=== PATIENT | female | born 1955 | race Caucasian/White ===

== ENCOUNTER 2020-03-28 13:13 | Inpatient (IN) | payer MEDICARE, OTHER ==
[~2020-03-28] VITALS: Ht 170.2 cm; Wt 107.0 kg
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
[2020-03-28 13:46] LABS: BASOPHILS % (AUTO) 0.2 % (0.0-2.0); EOSINOPHILS % (AUTO) 0.5 % (0.0-6.0); HEMATOCRIT 47 % (33-45); HEMOGLOBIN 15.4 g/dL (11.5-14.8); LYMPHOCYTES % (AUTO) 11.8 % (20.0-44.0); MEAN CORPUSCULAR HGB CONC 33 g/dl (31.0-36.0); MEAN CORPUSCULAR VOLUME 93 fL (82-100); MONOCYTES % (AUTO) 12.1 % (2.0-12.0); NEUTROPHILS # (AUTO) 6.3 /CMM (1.8-8.9); NEUTROPHILS % (AUTO) 75.4 % (43.0-81.0); PLATELET COUNT (AUTO) 233 /CMM (150-450); WHITE BLOOD COUNT (AUTO) 8.4 K/uL (4.3-11.0)
--- NOTE | 2020-03-28 13:47 | NUR ---
BROTHER CRISTOBAL ESCUDERO FROM [place] . THERAPIST [phone] OR [phone]
--- NOTE | 2020-03-28 14:00 | NUR ---
PATIENT TAKEN TO CT.
[2020-03-28] MEDS ORDERED: METF-440 PO (14:31)
[2020-03-28] MEDS ORDERED: OLAN20TA3 PO (14:31)
[2020-03-28] MEDS ORDERED: TRAZ-252 PO (14:31)
[2020-03-28] MEDS ORDERED: FLUO40CA49 PO (14:31)
[2020-03-28 14:41] LABS: CALCIUM, SERUM 8.8 mg/dL (8.5-10.1); CARBON DIOXIDE 22 mmol/L (21-32); CHLORIDE 99 mmol/L (98-107); CREATININE 0.8 mg/dL (0.6-1.3); GLUCOSE 112 mg/dL (74-106); POTASSIUM 3.3 mmol/L (3.5-5.1); SODIUM SERUM 137 mmol/L (136-145); UREA NITROGEN, BLOOD 9 mg/dL (7-18)
[2020-03-28 14:46] LABS: ALANINE AMINOTRANSFERASE 895 U/L (12-78); ALBUMIN 2.9 g/dL (3.4-5.0); ALKALINE PHOSPHATASE 247 U/L (46-116); ASPARTATE AMINOTRANSFERASE 79 U/L (15-37); BILIRUBIN,DIRECT 1.8 mg/dL (0.0-0.2); BILIRUBIN,TOTAL 2.7 mg/dL (0.2-1.0); TOTAL PROTEIN, SERUM 7.5 g/dL (6.4-8.2)
--- NOTE | 2020-03-28 14:46 | NUR ---
PATIENT ABLE TO AMBULATE TO RESTROOM. WAS ABLE TO GIVE A URINE SAMPLE.
[2020-03-28 14:47] LABS: SALICYLATE < 2.8 mg/dL (2.8-20.0)
--- NOTE | 2020-03-28 14:53 | NUR ---
COVID SWAB SENT.
--- NOTE | 2020-03-28 15:19 | NUR ---
received a covid 19 result from the lab "negative".
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
--- NOTE | 2020-03-28 17:17 | NUR ---
ATTEMPTED TO GIVE REPORT TO JAX PATTERSON FOR THREE TIMES, RN UNABLE TO TAKE REPORT. PATIENT WILL BE TRANSPORTED TO THE FLOOR, WILL GIVE BEDSIDE REPORT.
[2020-03-28] MEDS ORDERED: D5W IV ONE ×7 (17:30→23:00)
[2020-03-28] MEDS ORDERED: ACETYLCYSTEINE IV ONE ×7 (17:30→23:00)
--- NOTE | 2020-03-28 17:50 | NUR ---
REPORT GIVEN TO HOMER PATTERSON. WAITING FOR THE FIRST MUCOMYST.
[2020-03-28] MEDS ORDERED: IV NS 0.9% 1,000 ML IV PRN (18:22)
[2020-03-28] MEDS ORDERED: Z GUARD REMEDY 2 OZ OINT TP PRN (18:30)
[2020-03-28] MEDS ORDERED: MAG HYDROX/AL HYDROX/SIMETH 30 ML UDC PO PRN (18:30)
[2020-03-28] MEDS ORDERED: ONDANSETRON HCL/PF 4 MG/2 ML VIAL IVP PRN (18:30)
[2020-03-28] MEDS ORDERED: MAGNESIUM HYDROXIDE 30 ML UDC PO PRN (18:30)
--- NOTE | 2020-03-28 18:31 | NUR ---
PATIENT TRANSFERRED TO ROOM 310-1 VIA ACLS PROTOCOL. NO DISTRESS NOTED. NEEDS ATTENDED. ENDORSED TO JAX PATTERSON.
[2020-03-28] MEDS ORDERED: POTASSIUM CHLORIDE 20 MEQ TAB.PRT.SR PO ONE (19:00)
--- NOTE | 2020-03-28 19:00 | NUR ---
CALLED POISON CONTROL AND SPOKE WITH DOM, GAVE A COUPLE OF RECOMMENDATIONS. MAY CHECK LEFT'S EVERY 8 HOURS IF LFT'S ARE SIGNIFICANTLY LOWER THEN MEDICATION CAN BE DISCONTINUED. OR LFTS CAN BE CHECK 1 HOUR BEFORE THE NEXT DOSE OF MEDICATION. PHARMACY MADE AWARE. Addendum: 03/28/20 at 1908 by ROALCANCES CORRECTION: JOSE. AND AGREED TO GIVE MUCOMYST TO PATIENT.
--- NOTE | 2020-03-28 19:21 | NUR ---
TELE/RN NOTES RECEIVED REPORT FROM [facility] ER NURSE. PATIENT IS ALERT AND ORIENTED X3. PATIENT DENIES PAIN. PATIENT IN NO APPARENT RESPIRATORY DISTRESS NOTED. WILL ENDORSED TO INKER FOR TRISTON.
--- NOTE | 2020-03-28 19:45 | NUR ---
MARINE BIOLOGIST NOTE: PATIENT RESTING IN BED, NO ACUTE DISTRESS NOTED. BREATHING EVEN AND UNLABORED, NO SOB NOTED. IV TO RAC IN PLACE. PER DAY SHIFT AND PHARMACY, TO GIVE 2ND DOSE OF MUCOMYST IV AND TO CHECK LIVER FUNCTION LEVELS 1 HOURS PRIOR TO 3RD DOSE. 2ND DOSE OF MUCOMYST HUNG PER MD ORDER. SITTER AT BEDSIDE. BED LOCKED AND IN LOWEST POSITION, CALL LIGHT IN REACH. WILL CONTINUE TO MONITOR.
[2020-03-28 20:12] VITALS: BP 168/100
--- NOTE | 2020-03-28 21:00 | NUR ---
REPORT RECIEVED FROM HARSH PATTERSON. ASSUMED CARE. ADMISSION STILL NEEDS TO BE PERFORMED PATIENT ARRIVED ON UNIT AT 1830 PER REPORT.
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
[2020-03-28 22:51] LABS: ALBUMIN 2.5 g/dL (3.4-5.0); BILIRUBIN,DIRECT 1.4 mg/dL (0.0-0.2); BILIRUBIN,TOTAL 2.4 mg/dL (0.2-1.0); TOTAL PROTEIN, SERUM 6.7 g/dL (6.4-8.2)
[2020-03-29 00:03] VITALS: BP 157/73
--- NOTE | 2020-03-29 03:03 | NUR ---
[facility] CALLED AND INFORMED OF ORDERED PSYCH CONSULT. SPOKE WITH CARE CONSULTANT PARISH PATTERSON.
[2020-03-29 05:23] VITALS: BP 168/81
--- NOTE | 2020-03-29 05:30 | NUR ---
PT HYPERTENSIVE BP 168/81 BP CONSISTANTLY HIGH THROUGH OUT SHIFT CONTACTED ASHANTI NORRIS ASKED IF ANYTHING SHOULD BE GIVEN. NO NEW ORDERS RECIEVED. CONT TO MONITOR BP
--- NOTE | 2020-03-29 05:59 | NUR ---
pt refusing to wear scd sleeves.
--- NOTE | 2020-03-29 06:02 | NUR ---
PATIENT TRANSFERRED TO [facility] BED 1. OBSERVATION SITTER CONT. PT AMBULATED TO BR. IN NO APPARENT DISTRESS.
[2020-03-29 06:46] LABS: BASOPHILS % (AUTO) 0.2 % (0.0-2.0); EOSINOPHILS % (AUTO) 0.7 % (0.0-6.0); HEMATOCRIT 44 % (33-45); HEMOGLOBIN 14.3 g/dL (11.5-14.8); LYMPHOCYTES # (AUTO) 1.4 /CMM (0.8-4.8); MEAN CORPUSCULAR HGB CONC 33 g/dl (31.0-36.0); MEAN CORPUSCULAR VOLUME 93 fL (82-100); MONOCYTES # (AUTO) 1.6 /CMM (0.1-1.30); MONOCYTES % (AUTO) 16.5 % (2.0-12.0); NEUTROPHILS # (AUTO) 6.7 /CMM (1.8-8.9); NEUTROPHILS % (AUTO) 68.6 % (43.0-81.0); PLATELET COUNT (AUTO) 228 /CMM (150-450); RED BLOOD CELL COUNT(AUTO) 4.66 MIL/uL (4.0-5.2); WHITE BLOOD COUNT (AUTO) 9.7 K/uL (4.3-11.0)
--- NOTE | 2020-03-29 07:19 | NUR ---
COMPUTER LABORATORY TECHNICIAN CLOSING NOTE: PATIENT RESTING IN BED, NO ACUTE DISTRESS NOTED. BREATHING EVEN AND UNLABORED, NO SOB NOTED. IV TO RAC IN PLACE. MUCOMYST IV INFUSING ORDERED SITTER AT BEDSIDE. BED LOCKED AND IN LOWEST POSITION, CALL LIGHT IN REACH. WILL ENDORSE TO ONCOMING SHIFT
--- NOTE | 2020-03-29 07:20 | NUR ---
ms rn received on bed, awake,alert,oriented x4 w/ sitter at bed side,no distress noted, denies pain at this time,iv of mucomist on, will monitor patient's condition.
[2020-03-29 07:23] LABS: ALBUMIN 2.4 g/dL (3.4-5.0); BILIRUBIN,DIRECT 1.6 mg/dL (0.0-0.2); BILIRUBIN,TOTAL 2.5 mg/dL (0.2-1.0); CALCIUM, SERUM 8.5 mg/dL (8.5-10.1); CREATININE 0.8 mg/dL (0.6-1.3); MAGNESIUM 2.2 mg/dL (1.8-2.4); PHOSPHORUS 2.5 mg/dL (2.5-4.9); POTASSIUM 3.9 mmol/L (3.5-5.1); TOTAL PROTEIN, SERUM 6.7 g/dL (6.4-8.2)
[2020-03-29 07:30] LABS: THYROID STIMULATING HORMONE 2.173 uIU/mL (0.358-3.74)
--- NOTE | 2020-03-29 07:45 | NUR ---
ms rn was seen by dr. velasquez claros/ orders made and carried out.
[2020-03-29 08:00] VITALS: BP 148/76
--- NOTE | 2020-03-29 09:00 | NUR ---
ms dickerson went down for ct angoi. Addendum: 03/29/20 at 1443 by JADA ROBLEDO RN patient went down for ct chest,not ct angio.
--- NOTE | 2020-03-29 10:02 | NUR ---
ms jayla came back from procedure, poison control called w/ orders.
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
--- NOTE | 2020-03-29 10:46 | NUR ---
This SW attempted to contact catrachita's brother Zak unfortunatley this SW was not able to contact. However, this SW left Zak a voicemail containing contact information for this patient.
--- NOTE | 2020-03-29 11:05 | NUR ---
This SW met with the patient at bedside. Patient is alert and oriented x4. This SW attempted to complete assessment for APS reporting. Patient did not report much information. Patient reporting that she is feeling better and would like to go home. Per patient, she lives alone and has one brother Zak (older). Zak lives in [place]. Per patient, she is independent in ADL's and IADL's. Patient reports that brother Zak comes to visit her with his children, patient's mood changed and smiled as she reported this. When this SW asked the patient regarding her past employment history and patient stating "I don't want to talk anymore." SW to attempt to learn more information regarding this patient.
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
[2020-03-29 12:00] VITALS: BP 120/70
--- NOTE | 2020-03-29 13:00 | NUR ---
This SW received a call back from patient's brother Zak . Zak reports that the patient has been diagnosed with paranoid schizophrenia, depression, and beltran. Zak states that the patient has been on medications for 25 years. Patient has received services from [facility] . Zak states that the patient's therapist is Molly Fox and patient's doctor was Monserrat Solis. Per Zak, catrachita's doctor left this site on February 03 and patient has not been assigned a new doctor. Zak states that patient has 4 medications at the pharmacy pending pre-authorization. Per Zak, he believes patient has been off medications for weeks now. Zak could not remember the names of the medications that patient's sister was taking. Zak states that he was here visiting the patient 3 weeks ago and sent in renewal forms for patient's social security disability. Zak also states that he flew to [place] and is currently here if his presence is needed. This SW to call [facility] to get a medical release form from their facility (if needed) for medical records. This SW to also obtain [facility] Authorization form for disclosure of health information. SW remains available for all needs regarding this patient.
[2020-03-29 13:21] LABS: ALBUMIN 2.4 g/dL (3.4-5.0); BILIRUBIN,DIRECT 1.4 mg/dL (0.0-0.2); BILIRUBIN,TOTAL 2.1 mg/dL (0.2-1.0); TOTAL PROTEIN, SERUM 6.6 g/dL (6.4-8.2)
--- NOTE | 2020-03-29 13:37 | NUR ---
This SW attempted to contact [facility] for specific documentation for release of records. This SW was redirect to several different branches and not given correct information regarding this patient. This SW called Mae Fox to seek specific documentation for release of records.
--- NOTE | 2020-03-29 14:20 | NUR ---
ms rn labs-lfts and inr drawn,waiting for result.
--- NOTE | 2020-03-29 14:25 | NUR ---
Patient is refusing to sign release of records waiver for [facility] and Mae Fox . This SW had brother Zak speak with the patient and patient kept stating "I'm scared." SW explained that having patient's records will help [facility] Psychiatrist monitor medications while admitted. Patient stating "I'll think about it." This SW to check in with patient again. Addendum: 03/29/20 at 1628 by DALILA LAZO This SW followed up before end of day for the patient to sign release of medical records. Explained the purpose and patient "I rather not."
--- NOTE | 2020-03-29 14:51 | NUR ---
This SW left a copy of medical release documentation in the patient's chart for nursing to attempt to have the patient sign. SW will attempt once more before end of day. ATTN: Medical Records fax for Mae Fox . Authorization for use or disclosure of health information document was printed directly from [employer] under [employer]. Mae Fox does not require additional documentation for her office beyond SO request form. Addendum: 03/29/20 at 1628 by DALILA LAZO This SW followed up before end of day for the patient to sign release of medical records. Explained the purpose and patient "I rather not."
[2020-03-29 15:01] LABS: ALBUMIN 2.5 g/dL (3.4-5.0); BILIRUBIN,DIRECT 1.3 mg/dL (0.0-0.2); TOTAL PROTEIN, SERUM 6.7 g/dL (6.4-8.2)
[2020-03-29 16:00] VITALS: BP 124/68
--- NOTE | 2020-03-29 16:00 | NUR ---
ms rn lft and inr trending up, called poison control dept, talked w/Melissa,wants to continue above iv then repaet lft and inr one hour before bag is finished.
[2020-03-29] MEDS ORDERED: ACETYLCYSTEINE IV ONE (16:30)
[2020-03-29] MEDS ORDERED: D5W IV ONE (16:30)
--- NOTE | 2020-03-29 18:22 | NUR ---
ms rn on bed, no distress noted,patient still refusing to take pictures of her body bruises, all needs attended.
--- NOTE | 2020-03-29 19:40 | NUR ---
MSRN RESTING QUIETLY, NO NEEDS MADE. FLAT AFFECT. LIMITED VERBAL. COOPERATIVE AT THIS TIME. PRESENT IVF WITH MUCOMYST ORDERED
[2020-03-29 20:00] VITALS: BP 127/63
[2020-03-29 21:53] LABS: ALBUMIN 2.3 g/dL (3.4-5.0); BILIRUBIN,DIRECT 1.1 mg/dL (0.0-0.2); BILIRUBIN,TOTAL 1.7 mg/dL (0.2-1.0); TOTAL PROTEIN, SERUM 6.2 g/dL (6.4-8.2)
--- NOTE | 2020-03-29 22:30 | NUR ---
MSRN BRP WITH STANDBY ASSIST. VOIDED FREELY. REFUSED TO ANSWER WHEN ASKED, AT THIS TIME. NEEDS CLOSER OBSERVATION.
[2020-03-30] VITALS (7 sets, daily range): BP systolic 124–150; BP diastolic 49–70
--- NOTE | 2020-03-30 01:48 | NUR ---
MSRN SLEEPING APPEARS COMFORTABLE, REMAINS SR ON THE MONITOR. CONTINUED MONITORING.
[2020-03-30 06:20] LABS: BASOPHILS % (AUTO) 0.2 % (0.0-2.0); EOSINOPHILS % (AUTO) 1.7 % (0.0-6.0); HEMATOCRIT 40 % (33-45); HEMOGLOBIN 13.3 g/dL (11.5-14.8); LYMPHOCYTES # (AUTO) 1.5 /CMM (0.8-4.8); MEAN CORPUSCULAR HGB CONC 33 g/dl (31.0-36.0); MEAN CORPUSCULAR VOLUME 93 fL (82-100); MONOCYTES # (AUTO) 1.3 /CMM (0.1-1.30); MONOCYTES % (AUTO) 17.3 % (2.0-12.0); NEUTROPHILS # (AUTO) 4.6 /CMM (1.8-8.9); NEUTROPHILS % (AUTO) 60.8 % (43.0-81.0); PLATELET COUNT (AUTO) 203 /CMM (150-450); RED BLOOD CELL COUNT(AUTO) 4.33 MIL/uL (4.0-5.2); WHITE BLOOD COUNT (AUTO) 7.6 K/uL (4.3-11.0)
--- NOTE | 2020-03-30 06:21 | NUR ---
MSRN BACK TO BED FROM RESTROOM. NO COMPLAINTS MADE. REMAINS COOPERATIVE.
[2020-03-30 06:46] LABS: ALBUMIN 2.3 g/dL (3.4-5.0); BILIRUBIN,DIRECT 1.3 mg/dL (0.0-0.2); CALCIUM, SERUM 8.4 mg/dL (8.5-10.1); CREATININE 0.6 mg/dL (0.6-1.3); TOTAL PROTEIN, SERUM 6.2 g/dL (6.4-8.2)
[2020-03-30 07:19] LABS: POTASSIUM 2.8 mmol/L (3.5-5.1)
--- NOTE | 2020-03-30 07:30 | NUR ---
MS/RN Opening note Patient received from caramel cutter hand. A/O X3, vital signs stable, denies any pain or discomfort. Sitter remains within arms reach of patient at all times to ensure safety. Denies any thoughts of wanting to harm oneself. Will continue to monitor and ensure safety.
[2020-03-30 08:58] LABS: BAND % (MANUAL) 1 % (0.0-5.0); EOSINOPHILS % (MANUAL) 2 % (0-4); LYMPHOCYTES % (MANUAL) 26 % (16-48); MONOCYTES % (MANUAL) 2 % (0-11.0); NEUTROPHILS % (MANUAL) 69 (42-76)
--- NOTE | 2020-03-30 09:42 | NUR ---
MS/RN S/B Nico Meyer SCREW MACHINE SET UP OPERATOR TOOL Seen by SCREW MACHINE SET UP OPERATOR TOOL - labs to be ordered once current IV completed to evaluate liver function. Await further orders from psychiatrist.
[2020-03-30] MEDS ORDERED: LACTULOSE 10 G/15 ML UDC (PYXIS) PO PRN (10:00)
--- NOTE | 2020-03-30 10:00 | NUR ---
MS/RN S/B Nico Meyer LEAN COACH Seen by LEAN COACH - continue with fluids, replaced potassium, physical therapy evaluation. Await further recommendations from poison contro.
[2020-03-30] MEDS: POTASSIUM CHLORIDE 20 MEQ TAB.PRT.SR PO SCH ×5 (10:47→14:00)
--- NOTE | 2020-03-30 10:54 | NUR ---
Patient Brother Zak contacted this SW to provide list of medications he found in sister's home. Fluoxetine HCL 40 mg 2 times by mouth everyday Olanzapine 20mg generic for Zyprexia 2 by mouth at bedtime Trazodne 50 mg generic for desyrel 1/2 to 1 tablet at bedtime when needed Metformin HCL 500mg generic for glucphage take twice a day by mouth with morning and evening meals SW to provide this list of medications to patient nurse and coating mixer tender Nino
--- NOTE | 2020-03-30 12:00 | NUR ---
MS/RN S/B Dr Astudillo Seen by Dr Astudillo - restart psychiatric medications but with lower dosages. -zyprexia 10mg BID -prozac 20mg QD -trazadone at night as needed. Continue with one to one sitter to ensure safety. Will be reevaluated daily, and once medically cleared, for possible admission to [facility].
[2020-03-30 12:29] LABS: ALBUMIN 2.4 g/dL (3.4-5.0); BILIRUBIN,DIRECT 1.1 mg/dL (0.0-0.2); BILIRUBIN,TOTAL 1.6 mg/dL (0.2-1.0); TOTAL PROTEIN, SERUM 6.2 g/dL (6.4-8.2)
[2020-03-30] MEDS ORDERED: TRAZODONE 50 MG TABLET PO PRN (12:30)
[2020-03-30] MEDS: OLANZAPINE 10 MG TABLET PO SCH ×2 (12:38→21:45)
--- NOTE | 2020-03-30 13:00 | NUR ---
MS/RN Labs AST - 58 / 61 ALT - 502 / 473 INR - 1.28
--- NOTE | 2020-03-30 13:31 | NUR ---
MS/RN Poison control Call received from Kwame at poison control, as labs are normalizing, will sign off on case.
--- NOTE | 2020-03-30 15:48 | NUR ---
This SW met with the patient at bedside. Patient is alert and orientedx3. Patient stated to this SW "I was asking to see you, I'm glad you came." Patient asked this SW if the patient is ready to go home. This SW informed the patient that this SW cannot dictate when she goes home, the doctor will inform the patient when she is ready for discharge. Patients voice changed, a little softer, as if the patient was sad. Patient stated that she was ready to speak with Mae Fox her therapist however when this SW was dialing patient changed her mind. Patient stated that she wanted to sign [facility] Waiver for release of medical records but when prompted to do so patient did not want to. Patients thought process was repetitive asking the same questions of "When can I go home?, Can I see Zak(brother)? Would I have been able to see Zak yesterday? The doctor that I saw today, could I have seen him yesterday? I don't want to live at the hospital. I need to go home and take care of my dog." Patient did ask this SW if patient would see this SW and doctors again tomorrow. This SW stated that her interdisciplinary team will round when appropriate. Patient asked to rest. SW to follow-up with the patient tomorrow to follow-up on request to speak to Mae Fox patient's therapist and [facility] Waiver. SW to remain available for all needs regarding the patient.
--- NOTE | 2020-03-30 16:15 | NUR ---
Patient's brother Zak called this SW to check-in on patient. SW informed the brother that this patient's affect changed from yesterday. Patient is more open and receptive to meeting with individuals but does not have a clear thought process. Zak asked this SW if the psychiatrist had met with the patient. SW informed brother that psychiatrist did meet with the patient. Brothservando Crespo happy about that because "care is being taken care of". Zak asked if patient's phone can be charged, this SW informed Zak that he can make the request with nursing station. Brothservando Crespo wants patient to have it accessible in case patient wants to speak with him. Zak to follow-up on this request with nursing.
--- NOTE | 2020-03-30 18:28 | NUR ---
MS/RN End note Patient has remained calm amd cooperative throughout the shift. Denies any thoughts of self harm or wanting to hurt others. Compliant with medications and care. Will endore to warehouse worker 2nd shift.
--- NOTE | 2020-03-30 19:25 | NUR ---
MSRN FULLY AWAKE, ALL NEEDS MADE.MORE CONVERSANT ALTHOUGH LIMITED. BEHAVIOR ACCEPTABLE. TO START PATIENT ON ZYPREXIA TONIGHT. SITTER AT BEDSIDE. NEEDS CONSTANT OBSERVATION
--- NOTE | 2020-03-30 22:05 | NUR ---
MSRN DUE MEDS ADMINISTERED
[2020-03-31] VITALS: BP 128/55
--- NOTE | 2020-03-31 03:40 | NUR ---
MSRN SLEEPING APPEARS COMFORTABLE. CLOSELY WATCHED. CONTINUED MONITORING
[2020-03-31 04:49] VITALS: BP 146/93
--- NOTE | 2020-03-31 06:30 | NUR ---
MSRN REFUSED BLOOD DRAW THIS TIME. STATED WANTED TO SPEAK TO MD. WILL ENDORSE TO INCOMING RN.
--- NOTE | 2020-03-31 07:30 | NUR ---
RN MS NOTES PT IN BED, AWAKE, ALERT AND ORIENTED, NO COMPLAINT OF PAIN OR ANY DISCOMFORT, RESPIRATIONS NORMAL, NO BEHAVIOR PROBLEM NOTED AT THIS TIME, NEEDS ATTENDED, KEPT WARM AND COMFORTABLE IN BED.
[2020-03-31 07:56] LABS: BASOPHILS # (AUTO) 0.1 /CMM (0.0-0.2); BASOPHILS % (AUTO) 0.7 % (0.0-2.0); EOSINOPHILS % (AUTO) 3.5 % (0.0-6.0); HEMATOCRIT 41 % (33-45); HEMOGLOBIN 13.4 g/dL (11.5-14.8); LYMPHOCYTES # (AUTO) 1.8 /CMM (0.8-4.8); LYMPHOCYTES % (AUTO) 24.5 % (20.0-44.0); MEAN CORPUSCULAR HGB CONC 33 g/dl (31.0-36.0); MEAN CORPUSCULAR VOLUME 94 fL (82-100); MONOCYTES # (AUTO) 1.1 /CMM (0.1-1.30); MONOCYTES % (AUTO) 14.8 % (2.0-12.0); NEUTROPHILS # (AUTO) 4.3 /CMM (1.8-8.9); NEUTROPHILS % (AUTO) 56.5 % (43.0-81.0); PLATELET COUNT (AUTO) 210 /CMM (150-450); WHITE BLOOD COUNT (AUTO) 7.5 K/uL (4.3-11.0)
--- NOTE | 2020-03-31 08:00 | NUR ---
RN MS NOTES PT REFUSED 8AM VITAL SIGNS CHECK.
[2020-03-31 08:32] LABS: ALBUMIN 2.5 g/dL (3.4-5.0); BILIRUBIN,TOTAL 1.6 mg/dL (0.2-1.0); CALCIUM, SERUM 8.6 mg/dL (8.5-10.1); CREATININE 0.7 mg/dL (0.6-1.3); MAGNESIUM 2.2 mg/dL (1.8-2.4); POTASSIUM 4.1 mmol/L (3.5-5.1); TOTAL PROTEIN, SERUM 6.3 g/dL (6.4-8.2)
[2020-03-31] MEDS ORDERED: FLUOXETINE HCL 20 MG CAPSULE PO SCH (09:00)
[2020-03-31] MEDS: OLANZAPINE 10 MG TABLET PO SCH (09:13)
[2020-03-31] MEDS ORDERED: TRAZ-252 PO (11:11)
[2020-03-31] MEDS ORDERED: FLUO20CA42 PO ×2 (11:11→17:30)
[2020-03-31] MEDS ORDERED: OLAN10TA3 PO ×2 (11:11→17:30)
--- NOTE | 2020-03-31 12:32 | NUR ---
RN MS NOTES PT IN BED, ASLEEP, EASY TO AROUSE, NO BEHAVIOR PROBLEM NOTED, COMPLIANT WITH MEDS, PT VERBALIZED THAT SHE WANTS TO GO HOME, PT SEEN BY DR. AREVALO AND DR. LI, CRISIS TEAM EVAL ORDERED, PT CLEARED FOR D/C TO [facility], PT I NFORMED.
[2020-03-31 14:00] VITALS: BP 132/58
--- NOTE | 2020-03-31 16:17 | NUR ---
RN MS NOTES PT IN BED, AWAKE, ALERT AND VERBALLY RESPONSIVE, NO BEHAVIOR PROBLEM NOTED, COMPLIANT WITH MEDS AND INTERVENTIONS, SEEN BY DR. LI, PT SEEN BY CRISIS TEAM PANEL BEATER AND IS ON HOLD, PT FOR DISCHARGE TO [facility], BELONGINGS ACCOUNTED FOR, PT REFUSED SKIN CHECK AND PHOTOS, MEDICATION INSTRUCTIONS GIVEN TO PT, PT REFUSED TO SIGN HER DISCHARGE PAPERS AND BELONGINGS LIST, DISCHARGE AND MEDICATION INSTRUCTIONS GIVEN TO PT, REPORT GIVEN TO KENYON PATTERSON OF [facility], TRANSPORTED PT VIA WHEELCHAIR TO [facility], RECEIVED BY [facility] STAFF,ASSISTED TO BED AND MADE COMFORTABLE, PT IN STABLE CONDITION.
[2020-03-31] MEDS ORDERED: TRAZ-182 PO (17:30)
[2020-03-31] MEDS ORDERED: ALLA266C2 TP (17:30)
[2020-03-31] MEDS ORDERED: LACT10SO PO (17:30)
[2020-03-31] MEDS ORDERED: MAGN400O6 PO (17:30)
[2020-03-31] MEDS ORDERED: MAG30ORA PO (17:30)
== END 2020-03-31 15:10 | DRG 918 ==
LOC: ER 13:17 → TELE 16:11 → MED 03-31 07:39
PROVIDERS: ADMIT Nurse Practitioner Acute Care; ATTEND Nurse Practitioner Acute Care
DX: T39.1X2A Poisoning by 4-Aminophenol derivatives, intentional self-harm, initial encounter (principal); S06.0X9A Concussion with loss of consciousness of unspecified duration, initial encounter; J98.11 Atelectasis; Y92.009 Unspecified place in unspecified non-institutional (private) residence as the place of occurrence of the external cause; M50.30 Other cervical disc degeneration, unspecified cervical region; E87.6 Hypokalemia; W19.XXXA Unspecified fall, initial encounter; R29.6 Repeated falls; R74.0 Nonspecific elevation of levels of transaminase and lactic acid dehydrogenase [LDH]; E80.6 Other disorders of bilirubin metabolism; Z79.84 Long term (current) use of oral hypoglycemic drugs; Z79.899 Other long term (current) drug therapy; Y92.9 Unspecified place or not applicable; T14.8XXA Other injury of unspecified body region, initial encounter; Z68.37 Body mass index [BMI] 37.0-37.9, adult; F25.1 Schizoaffective disorder, depressive type; E66.9 Obesity, unspecified
CPT/HCPCS: 36415; 70450-TC; 70486-TC; 71045-TC; 71250-TC; 72125-TC; 76700-TC; 80048-TC; 80053-TC; 80061-TC; 80076-TC; 80305; 82140-TC; 82962-TC; 83605-TC; 83690-TC; 83735-TC; 84100-TC; 84443-TC; 84484-TC; 85025-TC; 85610-TC; 85730-TC; 87081-TC; 93307-TC; 93880-TC; 97116-TC; 97530-TC; C9803-CS; G0378; G0480; J0132; J2405; J7030; J7060; J7070

== ENCOUNTER 2020-03-31 15:50 | Inpatient (IN) | payer MEDICARE, OTHER ==
[~2020-03-31] VITALS: Ht 170.2 cm; Wt 77.1 kg
[~2020-03-31 15:50] MED LIST: FLUO20CA42 PO; OLAN10TA3 PO; OLAN20TA3 PO; TRAZ-252 PO
[2020-03-31 16:00] VITALS: BP 131/77
--- NOTE | 2020-03-31 16:00 | NUR ---
[facility] /RN ADMITTED PT ON 515 FOR DTS FROM [facility] MEDICAL ORIGINALLY FROM HOME WERE HSHE OVERDOSED ON TYLENOL. UNDER DR LI. ADMITTING ORDERS RECEIVED AND CARRIED OU. PROPERTY CHECKED FOR CONTRABAND NO SI OR HI AT THE TIME OF ADMISSION REPORTED. JIM AREVALO FRUIT PICKER AWARE OF ADMISSION.
[2020-03-31] MEDS ORDERED: ACETAMINOPHEN 325 MG TABLET PO PRN (16:30)
[2020-03-31] MEDS ORDERED: LORAZEPAM 0.5 MG TABLET PO PRN (16:30)
[2020-03-31] MEDS ORDERED: MAG HYDROX/AL HYDROX/SIMETH 30 ML UDC PO PRN ×2 (16:30→21:30)
[2020-03-31] MEDS ORDERED: MAGNESIUM HYDROXIDE 30 ML UDC PO PRN ×2 (16:30→21:30)
[2020-03-31] MEDS ORDERED: BLOOD SUGAR DIAGNOSTIC 1 EACH STRIP IN ONE (16:30)
--- NOTE | 2020-03-31 16:30 | NUR ---
PATIENT REFUSED FULL BODY PICTURES. PATIENT ALSO REFUSED FULL BODY ASSESSMENT.
[2020-03-31] MEDS ORDERED: TRAZ-182 PO (17:30)
[2020-03-31] MEDS ORDERED: LACT10SO PO (17:30)
[2020-03-31] MEDS ORDERED: ALLA266C2 TP (17:30)
[2020-03-31] MEDS ORDERED: MAGN400O6 PO (17:30)
[2020-03-31] MEDS ORDERED: FLUO20CA42 PO (17:30)
[2020-03-31] MEDS ORDERED: OLAN10TA3 PO (17:30)
[2020-03-31] MEDS ORDERED: MAG30ORA PO (17:30)
[2020-03-31 20:39] VITALS: BP 153/74
[2020-03-31] MEDS ORDERED: Z GUARD REMEDY 2 OZ OINT TP PRN (21:30)
[2020-03-31] MEDS ORDERED: LACTULOSE 10 G/15 ML UDC (PYXIS) PO PRN (22:30)
--- NOTE | 2020-03-31 23:31 | NUR ---
[facility]PS RN NOTE, RECEIVED PATIENT AWAKE AND IN BED, NO S/S OR COMPLAINTS OF PAIN AT THIS TIME. PATIENT IS DISPLAYING NO S/S OF APPARENT DISTRESS AT THIS TIME. PATIENT BREATHING IS UNLABORED WITH EQUAL RISE AND FALL OF THE CHEST. PATIENT IS ALERT AND ORIENTED X 2 -3 ON ROOM AIR WITH A SPO2 95%. PATIENT IS COMPLAINT WITH MEDICATIONS, DEPRESSED, AND COOPERATIVE. PATIENT DENIES SUICIDAL AND HOMICIDAL IDEATIONS AT THIS TIME. PATIENT ASSISTED WITH TURNING AND REPOSITIONING Q2HR AND PRN FOR COMFORT AND CIRCULATION. PATIENT HAS NO NEEDS AT THIS TIME. PATIENT EDUCATED ON THE USE OF THE CALL WOOD. PATIENT BED SIDE RAILS UP X 2 FOR SAFETY. PATIENT BED IS LOCKED, LOW, WITH BED ALARM ON. WILL CONTINUE TO MONITOR THIS PATIENT Q15 MINUTES WITH THE HELP OF STAFF TO MAINTAIN SAFETY.
[2020-04-01 08:00] VITALS: BP 149/64
[2020-04-01 16:00] VITALS: BP 167/86
[2020-04-01 16:25] LABS: ALBUMIN 2.9 g/dL (3.4-5.0); BILIRUBIN,TOTAL 1.5 mg/dL (0.2-1.0); CALCIUM, SERUM 8.8 mg/dL (8.5-10.1); CREATININE 0.8 mg/dL (0.6-1.3); POTASSIUM 3.4 mmol/L (3.5-5.1); TOTAL PROTEIN, SERUM 6.9 g/dL (6.4-8.2)
[2020-04-01 16:31] LABS: THYROID STIMULATING HORMONE 2.164 uIU/mL (0.358-3.74)
--- NOTE | 2020-04-01 18:50 | NUR ---
alert and oriented x3,awaiting arrival of dr. ordoñez to order psych meds.
[2020-04-01 19:50] VITALS: BP 159/84
[2020-04-01 20:00] VITALS: BP 159/84
--- NOTE | 2020-04-01 21:30 | NUR ---
[facility] RN NOTE PATIENT SEEN BY DR. BOOTHE WITH NEW ORDER TO START ZYPREXA & PROZAC ORDERED. NEW ORDERS NOTED & CARRIED OUT, FAXED TO PHARMACY. WILL CONTINUE TO MONITOR PATIENT FOR ANY CHANGES.
[2020-04-01 21:40] VITALS: BP 142/79
[2020-04-01] MEDS: OLANZAPINE 10 MG TABLET PO SCH (23:15)
[2020-04-02] MEDS: ZOLPIDEM TARTRATE 5 MG TABLET PO PRN (01:41)
--- NOTE | 2020-04-02 01:42 | NUR ---
[facility] RN NOTE: INSOMNIA PATIENT IS UNABLE TO SLEEP, RESTLESS & EASILY IRRITABLE. PRN AMBIEN 5 MG 1 TAB PO GIVEN. WILL CONTINUE TO MONITOR.
--- NOTE | 2020-04-02 06:41 | NUR ---
[facility] RN NOTE PATIENT SLEPT INTERMITTENTLY AT NIGHT, PARANOID, CONFUSED, DELUSIONAL, KEEPS REPEATING," I WANT TO GO HOME, I DON'T WANT TO GO HOME, I SHOULDN'T HAVE TAKEN MEDICINES." FREQUENT REDIRECTIONS NEEDED. WILL ENDORSE TO AM RN FOR CONTINUITY OF CARE.
--- NOTE | 2020-04-02 07:57 | NUR ---
RN NOTES UA SPECIMEN COLLECTED CLEAN CATCH, CALLED LAB TO TUBE MOLDER FIBERGLASS.
[2020-04-02 08:00] VITALS: BP 155/81
[2020-04-02 08:47] LABS: BILIRUBIN,URINE NEGATIVE (NEGATIVE); BLOOD, URINE NEGATIVE Ery/uL (NEGATIVE); COLOR,URINE YELLOW (YELLOW); KETONES,URINE NEGATIVE (NEGATIVE); LEUKOCYTE ESTERASE ,URINE TRACE (NEGATIVE); NITRITE, URINE NEGATIVE (NEGATIVE); PROTEIN,URINE NEGATIVE (NEGATIVE); UGLUCOSE NEGATIVE (NEGATIVE)
[2020-04-02] MEDS: FLUOXETINE HCL 20 MG CAPSULE PO SCH (08:49)
[2020-04-02] MEDS: LORAZEPAM 1 MG TABLET PO PRN ×2 (08:49→17:13)
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
[2020-04-02 09:05] LABS: APPEARANCE,URINE SLIGHTLY HAZY (CLEAR)
[2020-04-02 09:08] LABS: BACTERIA,URINE Few /HPF (None Seen); RBC,URINE 0-1 /HPF (0-2); SQUAMOUS EPITHELIAL CELL,UR Many /HPF (None Seen)
[2020-04-02] MEDS: OLANZAPINE 10 MG TABLET PO SCH ×2 (10:17→22:50)
[2020-04-02] MEDS ORDERED: POTASSIUM CHLORIDE 20 MEQ TAB.PRT.SR PO ONE (14:00)
[2020-04-02 16:00] VITALS: BP 100/55
--- NOTE | 2020-04-02 17:13 | NUR ---
rn notes administered ativan 1 mg po prn for anxiety per patient request, v/s taken bp-100/55, p-91.
--- NOTE | 2020-04-02 19:25 | NUR ---
RN NOTES: RECEIVED PATIENT IN BED, RESTING, AWAKE. NO S/S OF DISTRESS NOTED. NO COMPLAIN OF PAIN. PATIENT IS CALM. WITH BRUISES ON THE FACE AND NECK.
[2020-04-02 20:00] VITALS: BP 108/59
--- NOTE | 2020-04-02 20:01 | NUR ---
PATIENT ASKED FOR A SNACK-PUDDING, GIVEN AND PATIENT ATE 100% AND PATIENT IS HAPPY AND APPRECIATIVE.
--- NOTE | 2020-04-03 07:30 | NUR ---
RN NOTES PATIENT RECEIVED IN BED SLEEPING, EASILY AWAKEN BY NAME AND LIGHT TOUCH. ALERT AND ORIENTED X 2. PATIENT ON ROOM AIR WITH NO RESPIRATORY DISTRESS PRESENT AT THIS TIME WITH EVEN NON-LABORED BREATHING, WITH NO SOB NOTED. NO APPARENT DISTRESS AT THIS TIME. PATIENT PRESENTS WITH NO PAIN OR DISCOMFORT. SAFETY PRECAUTIONS IMPLEMENTED WITH BED LOCKED, BED IN THE LOWEST POSITION, BILATERAL SIDE RAILS UP, BED ALARM ON. WILL CONTINUE TO MONITOR PATIENT.
[2020-04-03 08:00] VITALS: BP 140/59
[2020-04-03] MEDS: FLUOXETINE HCL 20 MG CAPSULE PO SCH (08:45)
[2020-04-03] MEDS: OLANZAPINE 10 MG TABLET PO SCH ×2 (10:58→22:05)
--- NOTE | 2020-04-03 11:00 | NUR ---
INITIAL DISCHARGE PLAN: Pt may need placement as pt currently lives alone at home ([id number] [place] [id number]) and was found with bruising all over her and pt is currently paranoid/guarded and does not provide any information. Pt does not have any family contact in medical chart. SW will help form a safe and proper discharge in collaboration with .
--- NOTE | 2020-04-03 13:27 | NUR ---
FAMILY CONTACT: SW received a call from pts brother Zak ([phone]) requesting updated information and provided SW with collateral information. Per brother pt had been receiving mental health services with [facility] ([phone]) and states pts casey saw operator is Yasemin Fox ([phone]) and states that pts former psychiatrist was Dr. Clayton Solis and states that the MD left the agency in January and stated that pt was suppose to get a new psychiatrist and she never received an intake for a new psychiatrist and states pt ran out of her medication. Brother states that pts was taking, Fluoxetine (40mg BID), Olanzapine (40mg BID), and Trazodone (50mg HS PRN). He states that pts casey saw operator called EMS for a wellness check after pt stopped answering her calls. Brother states he believes pt has not been taking medication for 3 weeks. Brother wishes for pt to return home once stable.
--- NOTE | 2020-04-03 14:02 | NUR ---
[place] COORDINATION OF CARE: SW contacted pts watch case polisher, Yasemin Fox ([phone]) from [facility] and left a voicemail for callback.
--- NOTE | 2020-04-03 14:12 | NUR ---
CLIFTON COORDINATION OF CARE: CLIFTON contacted pts case worker, Mae Fox ([phone]) who provided SW with collateral information. Per Mae, she states pt missed a two intake appointments with her new psychiatrist and states that pts medications needed pre-authorization which caused a delay. She states that pts baseline behavior is paranoid/guarded and states that pt usually does not answer questions. Per Mae, pt will be assigned to as new psychiatrist and will be scheduled an appointment once there is a discharge date for pt. CLIFTON will continue to coordinate with Mae and communicate as needed.
[2020-04-03 16:00] VITALS: BP 146/79
[2020-04-03 20:17] VITALS: BP 136/70
[2020-04-04 08:00] VITALS: BP 148/85
[2020-04-04] MEDS: FLUOXETINE HCL 20 MG CAPSULE PO SCH (08:55)
[2020-04-04] MEDS: OLANZAPINE 10 MG TABLET PO SCH ×2 (10:37→22:37)
[2020-04-04 16:00] VITALS: BP 156/68
[2020-04-04 20:00] VITALS: BP 157/92
[2020-04-05 08:00] VITALS: BP 158/82
[2020-04-05] MEDS ORDERED: FLUOXETINE HCL 20 MG CAPSULE PO SCH (09:00)
--- NOTE | 2020-04-05 09:00 | NUR ---
RN NOTE- SLEEPING OFF AND ON FLAT AFFECT MON SYLLABIC RESPONSES TO QUERY. NEEDS ATTENDED DENIES SI HI AH VH. MED COMPLIANT NO BEHAVIORAL ISSUES GUARDED WITHDRAWN
[2020-04-05] MEDS: Fluoxetine 10 mg capsule PO SCH (09:08)
[2020-04-05] MEDS: OLANZAPINE 10 MG TABLET PO SCH ×2 (10:09→22:01)
[2020-04-05] MEDS: LORAZEPAM 1 MG TABLET PO PRN (14:01)
--- NOTE | 2020-04-05 14:03 | NUR ---
RN NOTE- ANXIETY/ PT RESTLESS ANXIOUS. ATIVAN 1 MG GIVEN
[2020-04-05 16:00] VITALS: BP 140/60
--- NOTE | 2020-04-05 19:25 | NUR ---
GPS RN NOTE PATIENT LAYING IN BED. A/OX3. APPEARS TO BE ANXIOUS/FEARFUL; STATED SHE IS AFRAID AND WANTS TO MAKE SURE HER DOG IS DOING OK; ABLE TO CALM AND REDIRECT PATIENT. DENIES SUICIDAL IDEATION OR AUDIO/VISUAL HALLUCINATION. CURRENTLY ON A 5250 HOLD. SAFETY MEASURES IN PLACE AND PATIENT'S NEEDS MET. WILL CONTINUE TO MONITOR FOR SAFETY.
[2020-04-05 20:06] VITALS: BP 134/73
[2020-04-06 08:00] VITALS: BP 151/66
[2020-04-06] MEDS: Fluoxetine 10 mg capsule PO SCH (08:33)
--- NOTE | 2020-04-06 09:03 | NUR ---
FAMILY CONTACT: SW contacted pts brothservando Crespo ([phone]) who informed SW that he wishes to take pt to live with him in [place] ([address], [place] [address]). SW informed him that pt will need to have a follow up appointment with a psychiatrist and informed him that pt will be following up with [facility] at time of discharge. Brother asked SW how it would be like to live with pt and SW suggested he stay with her for a week to see if he is able to care for her in [place]. Brother agreed and in the meantime SW will provide brother with mental health resources in [place].
--- NOTE | 2020-04-06 10:57 | NUR ---
FAMILY CONTACT: SW received a call from pts brother Zak ([phone]) stating that he is not sure of pts discharge plan. SW provided him with SNF, board and care, and Assisted Living options. SW also provided brother with [facility] Address: [address] [place] [address] contact information for additional assistance and caregiving services. SW informed him that pt does have to agree with placement and cannot be forced if pt refuses. Brother understood and agreed.
--- NOTE | 2020-04-06 11:27 | NUR ---
INDIVIDUAL INTERVENTION: SW met with pt at bedside and attempted to discuss pts discharge plan. Pt refused to engage in conversation and closed her eyes as soon as she saw SW. Pt appears disheveled and malodorous.
[2020-04-06] MEDS: OLANZAPINE 10 MG TABLET PO SCH ×2 (11:33→22:01)
--- NOTE | 2020-04-06 11:36 | NUR ---
FAMILY CONTACT: SW contacted pts brother Zak ([phone]) to inform him of pts current behaviors. SW stated that pt is refusing to speak to staff and closes her eyes as soon as staff attempt to engage with her. SW stated that per MD's notes she is declining and us currently not bathing or grooming herself. SW suggested that pt be discharged to a SNF as pt is unable to function on her own at home based on her current symptoms and behaviors. Brother agreed and states that this is the worse he's seen pt and stated that pt will need placement. SW will continue to coordinate with brother for a safe and proper discharge plan.
[2020-04-06 16:00] VITALS: BP 147/68
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
--- NOTE | 2020-04-06 18:59 | NUR ---
GPS/RN-NOTES PATIENT REFUSED TO EAT THIS SHIFT DESPITE ENCOURAGEMENT. PATIENT STATED" I'M NOT HUNGRY" COMPLIANT WITH P.O MEDICATIONS. EXPLAINED RISK AND BENEFITS OF EATING AND DRINKING. NELLY RIVERA MADE AWARE . WILL CONT. TO OFFERED FOOD/JUICE AND WATER. PATIENT IN BED NOTED WITH DEPRESSED MOOD BUT DENIES SI/HI,NO ACUTE DISTRESS NOTED. WILL ENDORSE TO INCOMING NURSE FOR CONT. MONITORING FOR SAFETY AND BEHAVIOR AND CONTINUITY OF CARE.
[2020-04-06 20:21] VITALS: BP 123/79
[2020-04-07 08:00] VITALS: BP 153/76
--- NOTE | 2020-04-07 08:26 | NUR ---
FAMILY CONTACT: SW received a call from pts brother Zak ([phone]) stating that after he provided pt with two discharge options, pt decided that she wants to move to [place] to live with him instead of being discharged to a SNF. SW will coordinate pts discharge once stable with pts brother.
[2020-04-07] MEDS: FLUOXETINE HCL 20 MG CAPSULE PO SCH (08:35)
[2020-04-07] MEDS ORDERED: Fluoxetine 10 mg capsule PO SCH (09:00)
--- NOTE | 2020-04-07 09:09 | NUR ---
FAMILY CONTACT: CLIFTON received a call from pts brother Zak ([phone]) confirming pt will be going to live with him once stable for discharge. Addendum: 04/07/20 at 0912 by PAIGE LAZO CLIFTON advised brother that he call [facility] to inform them of the move. CLIFTON provided brother with the contact number for [facility] and Medicare.
[2020-04-07] MEDS: OLANZAPINE 10 MG TABLET PO SCH ×2 (11:06→22:01)
--- NOTE | 2020-04-07 15:15 | NUR ---
GPS/RN-NOTES PATIENT VERBALLY AGREED TO GIVE ALL KEYS TO HER BROTHER CRISTOBAL ESCUDERO.
[2020-04-07 16:00] VITALS: BP 158/98
--- NOTE | 2020-04-07 16:56 | NUR ---
GPS/RN-NOTES NELLY BELL MADE AWARE OF PATIENT POOR FOOD AND FLUID INTAKE. STATED HE WILL ORDER SOME LABS FOR THE PATIENT.
[2020-04-07 19:53] VITALS: BP 157/75
--- NOTE | 2020-04-07 22:01 | NUR ---
NURSES NOTES: PATIENT IN THE ROOM, THE NURSE OFFERED HER THE SCHEDULED ZYPREXA 10 MG TAB, PATIENT HOWEVER ACCIDENTALLY DROPPED IT ON THE FLOOR. TANK HOOP BENDER THEN PULLED OUT ANOTHER ZYPREXA 10 MG FROM OMNICELL. PATIENT THEN TOOK IT.
[2020-04-08 07:07] LABS: BASOPHILS % (AUTO) 0.6 % (0.0-2.0); EOSINOPHILS % (AUTO) 0.5 % (0.0-6.0); HEMATOCRIT 44 % (33-45); HEMOGLOBIN 14.2 g/dL (11.5-14.8); LYMPHOCYTES % (AUTO) 15.8 % (20.0-44.0); MEAN CORPUSCULAR HGB CONC 33 g/dl (31.0-36.0); MEAN CORPUSCULAR VOLUME 94 fL (82-100); MONOCYTES # (AUTO) 0.8 /CMM (0.1-1.30); MONOCYTES % (AUTO) 12.2 % (2.0-12.0); NEUTROPHILS # (AUTO) 4.5 /CMM (1.8-8.9); NEUTROPHILS % (AUTO) 70.9 % (43.0-81.0); PLATELET COUNT (AUTO) 251 /CMM (150-450); RED BLOOD CELL COUNT(AUTO) 4.66 MIL/uL (4.0-5.2); WHITE BLOOD COUNT (AUTO) 6.3 K/uL (4.3-11.0)
[2020-04-08 08:00] VITALS: BP 161/78
[2020-04-08 08:00] LABS: CREATININE 0.7 mg/dL (0.6-1.3); MAGNESIUM 2.1 mg/dL (1.8-2.4); PHOSPHORUS 3.2 mg/dL (2.5-4.9); POTASSIUM 3.4 mmol/L (3.5-5.1)
[2020-04-08] MEDS: FLUOXETINE HCL 20 MG CAPSULE PO SCH (09:36)
[2020-04-08] MEDS: LORAZEPAM 1 MG TABLET PO PRN (09:36)
--- NOTE | 2020-04-08 09:36 | NUR ---
GIVEN ATIVAN FOR ANXIETY.RELUCTANT TO TAKE AM MEDS,WITH COAXING AND ENCOURAGEMENT PT. TOOK MEDS.ADDITIONALLY SPOKE TO BROTHER ON PHONE.
[2020-04-08] MEDS ORDERED: POTASSIUM CHLORIDE 20 MEQ TAB.PRT.SR PO SCH (10:00)
[2020-04-08 10:10] LABS: CALCIUM, SERUM 8.8 mg/dL (8.5-10.1)
--- NOTE | 2020-04-08 10:33 | NUR ---
GIVEN 20 MEQ. K-DUR FOR ABN. POTASSIUM LEVEL.
[2020-04-08] MEDS: OLANZAPINE 10 MG TABLET PO SCH ×2 (11:37→22:10)
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
[2020-04-08] MEDS ORDERED: LORAZEPAM 1 MG TABLET PO ONE (13:30)
[2020-04-08 16:00] VITALS: BP 148/81
--- NOTE | 2020-04-08 18:00 | NUR ---
out at desk fre.very needy.
[2020-04-08 20:21] VITALS: BP 141/60
[2020-04-09 08:00] VITALS: BP 141/55
[2020-04-09] MEDS: FLUOXETINE HCL 20 MG CAPSULE PO SCH (09:30)
[2020-04-09] MEDS: OLANZAPINE 10 MG TABLET PO SCH ×2 (11:27→22:04)
[2020-04-09 16:00] VITALS: BP 152/71
[2020-04-09 19:57] VITALS: BP 141/62
--- NOTE | 2020-04-09 21:26 | NUR ---
GPS RN NOTES: REFUSED WEEKLY SKIN ASSESSMENT PT REFUSED WEEKLY SKIN ASSESSMENT AND PICTURE. EXPLAIN RISKS AND BENEFITS. PT STILL REFUSED X 3. CONTINUE TO MONITOR.
[2020-04-10 08:00] VITALS: BP 155/82
[2020-04-10] MEDS: OLANZAPINE 10 MG TABLET PO SCH ×2 (09:22→22:01)
[2020-04-10] MEDS: FLUOXETINE HCL 20 MG CAPSULE PO SCH (09:22)
--- NOTE | 2020-04-10 14:57 | NUR ---
FAMILY CONTACT: CLIFTON received a call from pts brother Zak ([phone]) requesting updated information. SW provided brother with an update on pts behavior. SW informed him that pt is refusing to engage in group milieu and informed him that pt is refusing to self groom and bath. SW stated that over the weekend pt was manic and today pt is depressed and refusing to speak to staff. SW encouraged brother to motivate pt to get up from bed and self groom. SW also informed brother that pt is only eating 25% of her meals.
[2020-04-10 16:00] VITALS: BP 132/66
--- NOTE | 2020-04-10 16:00 | NUR ---
INDIVIDUAL INTERVENTION: SW met with pt at bedside to encourage pt to engage in self recovery and grooming. Pt refused to speak to SW, pt turned over to her side and closed her eyes and did not respond to SW verbal cues.
--- NOTE | 2020-04-10 16:00 | NUR ---
RN NOTE:patient c/o back pain medicated with tylenol 650mg will continue to monitor .
--- NOTE | 2020-04-10 16:30 | NUR ---
RN NOTE:NO C/O PAIN AT THIS TIME WILL CONTINUE TO MONITOR .
[2020-04-10] MEDS: ENSURE ENLIVE 237 ML LIQUID (VANILLA) PO SCH (19:00)
--- NOTE | 2020-04-10 19:41 | NUR ---
GPS RN NOTES: REFUSED ENSURE PT REFUSED TO TAKE ENSURE DUE. PT STATED, "I CANT DRINK RIGHT NOW. I JUST WANT TO REST IN BED PLEASE." EXPLAIN RISKS AND BENEFITS. PT STILL REFUSED X3 CONTINUE TO MONITOR.
[2020-04-10 19:51] VITALS: BP 148/71
[2020-04-11 08:00] VITALS: BP 155/84
[2020-04-11] MEDS: ENSURE ENLIVE 237 ML LIQUID (VANILLA) PO SCH ×2 (08:10→16:47)
[2020-04-11] MEDS: FLUOXETINE HCL 20 MG CAPSULE PO SCH (08:53)
[2020-04-11] MEDS: OLANZAPINE 10 MG TABLET PO SCH ×2 (12:09→22:21)
--- NOTE | 2020-04-11 13:00 | NUR ---
INDIVIDUAL INTERVENTION: Pt was walking around unit and followed SW stating, "Don't do anything to me." Pt had a blunted affect and kept getting close to SW. SW asked pt to step away as pt appeared psychotic and manic and had no regard for personal space and boundaries. Pt appeared to be responding to internal stimuli.
--- NOTE | 2020-04-11 15:11 | NUR ---
INDIVIDUAL INTERVENTION: SW met with pt to discuss her discharge plan. Pt stated, "I'm suppose to discharge today with my brother in [place], the doctor said I'm leaving today." SW provide reality orientation and pt did not engage. Pt appears to be responding to internal stimuli. Pt was not responding to SW questions.
[2020-04-11] MEDS: LORAZEPAM 1 MG TABLET PO PRN (15:23)
--- NOTE | 2020-04-11 16:05 | NUR ---
FAMILY CONTACT: SW received a call from pts brother Zak ([phone]) informing SW that he has been encouraging pt to shower and participate in group milieu. SW informed him that pt was observed walking around and in the activity room. SW also confirmed that pt took a shower today.
[2020-04-11 19:38] VITALS: BP 158/74
[2020-04-11 22:00] VITALS: BP 132/74
--- NOTE | 2020-04-12 06:19 | NUR ---
GPS RN NOTES: PT. RESTING IN HIS ROOM, CALM NOTED AT THIS TIME . NO S/S OF DISTRESS NOTED . PT. CALM COOPERTIVE,NO CHANGE OF CONDITION NOTED ,AND NO BEHAVIOR PROBLEMS NOTED, ALL CARE NEEDS MET ANTICIPATED. WILL CONTINUE TO MONITOR FOR SAFETY BEHAVIOR, AND ENDORSE TO AM SHIFT FOR CONTINUITY OF CARE.
[2020-04-12 07:48] LABS: ALBUMIN 2.6 g/dL (3.4-5.0); BILIRUBIN,TOTAL 0.8 mg/dL (0.2-1.0); CALCIUM, SERUM 8.6 mg/dL (8.5-10.1); CREATININE 0.6 mg/dL (0.6-1.3); POTASSIUM 3.5 mmol/L (3.5-5.1); TOTAL PROTEIN, SERUM 6.2 g/dL (6.4-8.2)
[2020-04-12] MEDS: ENSURE ENLIVE 237 ML LIQUID (VANILLA) PO SCH ×2 (07:53→16:59)
[2020-04-12 08:00] VITALS: BP 152/76
[2020-04-12] MEDS: FLUOXETINE HCL 20 MG CAPSULE PO SCH (08:30)
--- NOTE | 2020-04-12 09:00 | NUR ---
RN NOTE- PT WITHDRAWN ISOLATIVE GUARDED MED COMPLIANT PO INTAKE FAIR. NO BEHAVIORAL ISSUES FLAT AFFECT
[2020-04-12] MEDS: OLANZAPINE 10 MG TABLET PO SCH ×2 (10:21→22:00)
[2020-04-12 16:00] VITALS: BP 164/74
--- NOTE | 2020-04-12 16:33 | NUR ---
This SW received a call from Mae Fox regarding this patient. Mae expressed concerns about the patient receiving more care. Per Mae, Mae believes patient cannot do "everyday things like cook, clean or bathe. At the agency, we think it is best to send her to a residential house or something." This SW thanked Mae for her call and informed Mae that this SW does not follow this patient but will inform CLIFTON Mackey about this call. Mae expressed understanding and would like CLIFTON Mackey to call her back at .
[2020-04-12 20:07] VITALS: BP 149/71
[2020-04-13 08:00] VITALS: BP 157/87
--- NOTE | 2020-04-13 08:18 | NUR ---
CLIFTON COORDINATION OF CARE: SW contacted pts bilingual patient support caseworker, Mae Fox ([phone]) from [facility] and left a voicemail providing her with an update on pts discharge plan and current behaviors and symptoms.
[2020-04-13] MEDS: FLUOXETINE HCL 20 MG CAPSULE PO SCH (08:27)
[2020-04-13] MEDS: ENSURE ENLIVE 237 ML LIQUID (VANILLA) PO SCH ×2 (08:27→16:42)
[2020-04-13] MEDS: OLANZAPINE 10 MG TABLET PO SCH ×2 (10:22→22:06)
--- NOTE | 2020-04-13 10:53 | NUR ---
FAMILY CONTACT: SW received a call from pts brother Zak ([phone]) requesting updated information. SW provided brother with an update on pts behavior.
--- NOTE | 2020-04-13 10:57 | NUR ---
CLIFTON COORDINATION OF CARE: SW received a call from pts case supervisor, Yasemin Fox ([phone]) from [facility] stating pts followup appointment cannot be scheduled until pt is discharged.
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
--- NOTE | 2020-04-13 11:13 | NUR ---
FAMILY CONTACT: SW contacted pts brother Zak ([phone]) to inform him of pts current behaviors. SW informed him that pt remains psychotic and paranoid and that she was refusing to shower. SW informed him that MD will be increasing pts antipsychotic medication. Pts brother agreed with treatment plan.
[2020-04-13] MEDS: LORAZEPAM 1 MG TABLET PO PRN (13:09)
[2020-04-13 16:00] VITALS: BP 145/84
[2020-04-13 20:17] VITALS: BP 158/86
[2020-04-14 08:00] VITALS: BP 127/91
[2020-04-14] MEDS: ENSURE ENLIVE 237 ML LIQUID (VANILLA) PO SCH ×2 (08:20→16:22)
[2020-04-14] MEDS: FLUOXETINE HCL 20 MG CAPSULE PO SCH (08:41)
[2020-04-14] MEDS: OLANZAPINE 10 MG TABLET PO SCH ×3 (10:18→23:21)
--- NOTE | 2020-04-14 13:45 | NUR ---
GROUP THERAPY: SW encouraged pt to attend group therapy, pt is unable to participate due to pt presenting disorganized, delusional, and paranoid and focused on being discharged today. SW attempted to provide reality orientation and pt refused to be redirected. Pt has no insight into her mental illness.
[2020-04-14] MEDS: LORAZEPAM 1 MG TABLET PO PRN ×2 (15:31→23:57)
--- NOTE | 2020-04-14 15:49 | NUR ---
GPS RN MED ADMINISTRATION PATIENT ANXIOUS AND AGITATED; JENN. PRN ATIVAN ADMINISTERED PER MD ORDER.
[2020-04-14 16:00] VITALS: BP 153/77
[2020-04-14 20:10] VITALS: BP 137/50
--- NOTE | 2020-04-14 23:15 | NUR ---
GPS RN NOTE: MEDICATION REFUSAL PT. REFUSED SCHEDULED 2300 MEDICATION ZYPREXA 20 MG PO. STATES "MY DOCTOR DID NOT PRESCRIBE ME ANY MEDICINE." EXPLAINED RISKS AND BENEFITS. OFFERED 3X AND PT. STILL REFUSED. WILL CONTINUE TO MONITOR FOR SAFETY AND BEHAVIOR Addendum: 04/14/20 at 2323 by TERENCE CURRIE RN PT. CHANGED HER MIND AND DECIDED TO TAKE HER SCHEDULED 2300 ZYPREXA 20 MG. WILL CONTINUE TO MONITOR FOR SAFETY AND BEHAVIOR.
--- NOTE | 2020-04-15 | NUR ---
GPS RN NOTE: ANXIETY PT. APPEARS ANXIOUS. KEEPS COMING OUT OF HER ROOM STATING " THEY'RE GOING TO HURT ME." ADMINISTERED ATIVAN 1MG PO PRN ORDERED. WILL CONTINUE TO MONITOR FOR SAFETY AND BEHAVIOR.
[2020-04-15 08:00] VITALS: BP 152/67
[2020-04-15] MEDS: ENSURE ENLIVE 237 ML LIQUID (VANILLA) PO SCH ×2 (08:16→17:19)
[2020-04-15] MEDS: FLUOXETINE HCL 20 MG CAPSULE PO SCH (08:59)
[2020-04-15] MEDS: LORAZEPAM 1 MG TABLET PO PRN (08:59)
--- NOTE | 2020-04-15 08:59 | NUR ---
RN NOTE: ANXIETY PT EXHIBITING INCREASED ANXIETY AND AGITATION. PT SHAKING AND PARANOID. PT FEARFUL OF HOSPITAL AND BELIEVES SHE IS GOING HOME TODAY WITH HER BROTHER. TANGENTIAL AND THOUGHT BLOCKING SPEECH.
[2020-04-15] MEDS: OLANZAPINE 10 MG TABLET PO SCH ×2 (11:28→22:33)
[2020-04-15] MEDS: GABAPENTIN 100 MG CAPSULE PO SCH ×2 (13:13→17:19)
[2020-04-15 16:00] VITALS: BP 150/86
[2020-04-15 20:14] VITALS: BP 151/81
[2020-04-16 08:00] VITALS: BP 158/75
[2020-04-16] MEDS: ENSURE ENLIVE 237 ML LIQUID (VANILLA) PO SCH ×2 (08:05→16:39)
[2020-04-16] MEDS: GABAPENTIN 100 MG CAPSULE PO SCH ×3 (08:29→16:39)
[2020-04-16] MEDS: LORAZEPAM 1 MG TABLET PO PRN ×2 (08:29→16:39)
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
[2020-04-16] MEDS: OLANZAPINE 10 MG TABLET PO SCH ×2 (11:46→22:53)
[2020-04-16 16:00] VITALS: BP 146/81
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
[2020-04-16 20:42] VITALS: BP 147/72
[2020-04-16] MEDS: ZOLPIDEM TARTRATE 5 MG TABLET PO PRN (21:44)
[2020-04-16 23:12] LABS: BASOPHILS % (AUTO) 0.3 % (0.0-2.0); EOSINOPHILS % (AUTO) 2.3 % (0.0-6.0); HEMATOCRIT 41 % (33-45); HEMOGLOBIN 13.5 g/dL (11.5-14.8); LYMPHOCYTES # (AUTO) 2.1 /CMM (0.8-4.8); LYMPHOCYTES % (AUTO) 26.4 % (20.0-44.0); MEAN CORPUSCULAR HGB CONC 33 g/dl (31.0-36.0); MEAN CORPUSCULAR VOLUME 94 fL (82-100); MONOCYTES # (AUTO) 1.3 /CMM (0.1-1.30); MONOCYTES % (AUTO) 16.3 % (2.0-12.0); NEUTROPHILS # (AUTO) 4.3 /CMM (1.8-8.9); NEUTROPHILS % (AUTO) 54.7 % (43.0-81.0); PLATELET COUNT (AUTO) 205 /CMM (150-450); RED BLOOD CELL COUNT(AUTO) 4.33 MIL/uL (4.0-5.2); WHITE BLOOD COUNT (AUTO) 7.9 K/uL (4.3-11.0)
[2020-04-16 23:27] LABS: ALBUMIN 2.6 g/dL (3.4-5.0); BILIRUBIN,TOTAL 0.4 mg/dL (0.2-1.0); CALCIUM, SERUM 8.6 mg/dL (8.5-10.1); CREATININE 0.8 mg/dL (0.6-1.3); POTASSIUM 3.9 mmol/L (3.5-5.1); TOTAL PROTEIN, SERUM 6.1 g/dL (6.4-8.2)
--- NOTE | 2020-04-17 06:51 | NUR ---
GPS RN CLOSING NOTES: PT LAYING ON BED AWAKE A/O. FLAT AFFECT, DISORGANIZED THOUGHTS, DISORIENTED, CONFUSED. PT WAS MED COMPLIANT THIS SHIFT. AMBIEN 5MG 1TAB PO PRN ORDERED FOR SLEEP AT 2144. SLEPT FOR 8HR THIS SHIFT. PT REFUSED WEEKLY SKIN ASSESSMENT. NO S/S OF DISTRESS AT THIS TIME. RESPIRATION EVEN AND UNLABORED WITH EQUAL RISE AND FALL OF THE CHEST ON ROOM AIR. ALL PATIENT CARE NEEDS WERE MET ANTICIPATED. WILL CONTINUE TO MONITOR AND ENDORSE TO AM SHIFT.
[2020-04-17 08:00] VITALS: BP 159/77
[2020-04-17] MEDS: ENSURE ENLIVE 237 ML LIQUID (VANILLA) PO SCH ×2 (08:18→16:49)
[2020-04-17] MEDS: GABAPENTIN 100 MG CAPSULE PO SCH ×3 (08:18→16:49)
--- NOTE | 2020-04-17 09:00 | NUR ---
RN NOTE- PT CONFUSED ALERT ORIENTED TO SELF ONLY FEARFUL WARY GUARDED AND PARANOID MED COMPLIANT POOR PO INTAKE THIS MORNING WITHDRAWN DENIES ALL
[2020-04-17] MEDS: OLANZAPINE 10 MG TABLET PO SCH ×2 (11:05→22:10)
[2020-04-17 16:00] VITALS: BP 140/73
[2020-04-17 19:50] VITALS: BP 154/76
[2020-04-18 08:00] VITALS: BP 160/78
[2020-04-18] MEDS: ENSURE ENLIVE 237 ML LIQUID (VANILLA) PO SCH ×2 (08:32→17:10)
[2020-04-18] MEDS: GABAPENTIN 100 MG CAPSULE PO SCH (08:32)
--- NOTE | 2020-04-18 09:00 | NUR ---
RN NOTE- PT FEARFUL WARY GUARDED AND PARANOID MED COMPLIANT POOR PO INTAKE THIS MORNING WITHDRAWN DENIES ALL NO BEHAVIORAL ISSUES THUS FAR
--- NOTE | 2020-04-18 09:20 | NUR ---
FAMILY CONTACT: SW received a call from pts brother Zak ([phone]) who was inquiring an update on patient's treatment plan. This health technical writer informed that the psychiatrist is adjusting her medications and believes she may be ready for discharge sometime end of this week. Zak stated that he is ready to pick her up once a discharge date is set.
[2020-04-18] MEDS: OLANZAPINE 10 MG TABLET PO SCH ×2 (11:11→22:04)
[2020-04-18] MEDS ORDERED: GABAPENTIN 100 MG CAPSULE PO SCH (13:00)
[2020-04-18] MEDS: GABAPENTIN 300 MG CAPSULE PO SCH ×2 (13:04→17:10)
[2020-04-18 16:00] VITALS: BP 157/94
[2020-04-18 19:43] VITALS: BP 157/69
[2020-04-19 08:00] VITALS: BP 150/89
[2020-04-19] MEDS: ENSURE ENLIVE 237 ML LIQUID (VANILLA) PO SCH ×2 (08:28→17:25)
[2020-04-19] MEDS: GABAPENTIN 300 MG CAPSULE PO SCH ×4 (08:54→17:26)
[2020-04-19] MEDS: OLANZAPINE 10 MG TABLET PO SCH ×3 (10:13→11:12)
--- NOTE | 2020-04-19 10:20 | NUR ---
RN-CO: PATIENT REFUSED HER AM MEDICATIONS INCL ZYPREXA. I ENCOURAGED HER 3 X WITH ANOTHER RN BUT STILL REFUSED AND REMAINS PARANOID AND SUSPICIOUS.
--- NOTE | 2020-04-19 11:12 | NUR ---
RN-CO: DR LI SEEN AND EXAMINED THE PATIENT TODAY, MD ENCOURAGED HER TO TAKE HER 0900 DOSE OF NEURONTIN AND ZYPREXA. PT TOOK IT IN THE PRESENCE OF RN AND DOCTOR.
--- NOTE | 2020-04-19 15:09 | NUR ---
FAMILY CONTACT: SW received a call from pts brother Zak ([phone]) who was inquiring an update on patient's treatment and discharge plan. This engineering writer informed Zak that it has been difficult locating a psychiatrist in [place]. This engineering writer stated that should a psychiatrist in that state not be narrowed down, this engineering writer will provide Zak resources for mental health clinics that he can contact once they move to that state and area. Zak was agreed with this plan.
[2020-04-19 16:00] VITALS: BP 161/75
--- NOTE | 2020-04-19 16:15 | NUR ---
GPS RN NOTE RECEIVED PT IN DAY ROOM, PT WAS WATCHING TV, NO DISTRESS NOTED, DENIES PAIN, PT IS ISOLATIVE, SUSPICIOUS, GUARDED, ALL NEEDS MET AT THIS TIME, WILL CONTINUE TO MONITOR Q15MIN FOR SAFETY AND BEHAVIOR.
--- NOTE | 2020-04-19 19:03 | NUR ---
GPS RN NOTE: SKIN ASSESSMENT PT WAS WALKING AROUND UNIT TRYING TO UNDRESS SELF, TALKING TO SELF, DELUSIONAL, DISHEVELED. AFTER REDIRECTING PT, PT WENT TO BED AND I HAD NOTICED THE PTS SKIN WAS VERY RED AND IRRITATED UNDER THE BREAST FOLDS AND INNER THIGH. ALSO NOTED THE PT HAD A VERY LARGE ABDOMINAL WALL HERNIA, PT STATED SHES HAD IT FOR A WHILE NOW AND IT DOES NOT HURT OR BOTHER HER. PT REFUSED TO LET ME ASSESS AND TAKE PICTURES, WILL PASS IT ON TO THE DAY SHIFT SO THAT THE MEDICAL DR MAY SEE THE PT Addendum: 04/20/20 at 0342 by ENOCH MAZARIEGOS RN WOUND CONSULT WAS ALSO ORDERED, NOTED PT HAD Z-GUARD PRN BUT WAS UNABLE TO FIND THE ZGUARD IN BIN AND PTS ROOM, WILL CALL PHARMACY TOMORROW MORNING TO REPLACE.
[2020-04-19 20:36] VITALS: BP 102/56
[2020-04-20 08:00] VITALS: BP 151/67
[2020-04-20] MEDS: ENSURE ENLIVE 237 ML LIQUID (VANILLA) PO SCH ×3 (08:00→16:51)
--- NOTE | 2020-04-20 08:00 | NUR ---
GPS RN NOTE RECEIVED PATIENT IN BED SLEEPING BUT EASILY AROUSABLE BY NAME AND LIGHT TOUCH, PATIENT IN NO APPARENT RESPIRATORY DISTRESS NOTED. PATIENT DENIES PAIN AT THIS TIME, WILL CONTINUE TO MONITOR Q15MIN FOR SAFETY AND BEHAVIOR.
[2020-04-20] MEDS: GABAPENTIN 300 MG CAPSULE PO SCH ×3 (08:46→16:41)
[2020-04-20] MEDS: OLANZAPINE 10 MG TABLET PO SCH ×2 (11:04→23:06)
--- NOTE | 2020-04-20 11:04 | NUR ---
COORDINATION OF CARE: This report writer provided three referrals for Psychiatrist: [facility] [phone], [facility] ([phone]), [facility] ([phone]). This report writer provided three referrals for Tearoom Host/Hostess: Dr. Bhat ([phone]) [address] [place] [address],Dr. Davenport [address] [address] [place] ; ([phone]), Dr. Duncan [address] Keith Manrique MD ; ([phone])
--- NOTE | 2020-04-20 15:24 | NUR ---
GPS RN NOTES PATIENT REFUSED TO EAT BREAKFAST AND LUNCH EXPLAINED THE RISK AND BENEFITS PATIENT STILL REFUSING.
[2020-04-20 16:00] VITALS: BP 158/73
[2020-04-20] MEDS: LORAZEPAM 1 MG TABLET PO PRN (18:26)
[2020-04-20 19:49] VITALS: BP 142/86
[2020-04-20 19:52] VITALS: BP 142/86
[2020-04-20] MEDS: ZOLPIDEM TARTRATE 5 MG TABLET PO PRN (21:16)
--- NOTE | 2020-04-20 21:17 | NUR ---
GPS RN NOTE: INSOMNIA PATIENT VERBALIZED THAT SHE IS UNABLE TO SLEEP, PRN AMBIEN 5 MG 1 TAB PO PRN GIVEN ORDERED. WILL CONTINUE TO MONITOR FOR ANY CHANGES.
[2020-04-21] MEDS: LORAZEPAM 1 MG TABLET PO PRN (07:25)
--- NOTE | 2020-04-21 07:28 | NUR ---
GPS RN NOTE: ANXIETY PATIENT IS ANXIOUS, RESTLESS, HYPERVERBAL, PACING IN THE HALLWAY, IN & OUT OF HER ROOM. PRN ATIVAN 1 MG 1 TAB PO GIVEN. WILL CONTINUE TO MONITOR.
[2020-04-21 08:00] VITALS: BP 140/98
[2020-04-21] MEDS: GABAPENTIN 300 MG CAPSULE PO SCH (08:52)
[2020-04-21] MEDS: ENSURE ENLIVE 237 ML LIQUID (VANILLA) PO SCH (08:52)
--- NOTE | 2020-04-21 08:59 | NUR ---
DISCHARGE NOTE: Patient will be discharged today with her brother Zak ([phone]) to his home in [place] ([address], [place] ). Zak will be picking up the patient today at 10:00AM. Patient is aware and agreeable with discharge plan. Patient presents with appropriate mood and congruent affect. Patient denies suicidal or homicidal ideation. provided patient and family with three referrals for psychiatrists in [place]: [facility] [phone], [facility] ([phone]), [facility] ([phone]). This sign writer letterer or painter provided three referrals for Slp Teacher: Dr. Bhat ([phone]) [address] [address] [place] [address], Dr. Davenport [address] [address] MD ([phone]), Dr. [place] [address] [place] [address] ([phone]). Patients pharmacy is [facility] ([phone]).
--- NOTE | 2020-04-21 09:36 | NUR ---
Dr. Mckeon gave an order to D/C hold to brother's home in [place] and to follow up with psych and medical doctors. Psychiatrist provided prescription.
[2020-04-21] MEDS: OLANZAPINE 10 MG TABLET PO SCH (09:37)
--- NOTE | 2020-04-21 10:01 | NUR ---
WOUND CARE CONSULT: REDNESS PREVIOUSLY NOTED TO BREASTFOLDS BUT NOW RESOLVED. PT STATES HAS BEEN USING Z GUARD. PT IS AMBULATORY AND CONTINENT AT THIS TIMES. PT TO BE DISCHARGED TODAY.
--- NOTE | 2020-04-21 11:52 | NUR ---
GPS/RN PT TO BE D/C TODAY WITH HER BROTHER A RIDE. PT REFUSED PICTURES NO SI OR HI AT THE THIS TIME. PT BROTHER ON THE WAY TO THE HOSPITAL
--- NOTE | 2020-04-21 12:15 | NUR ---
GPS/RN PT WAS DISCHARGED. LEFT VIA W/C TO THE PRIVATE CAR. PRESCRIPTIONS AND EXIT CARE INSTRUCTIONS GIVEN TO PT'S BROTHER CRISTOBAL. PROPERTY FROM THE SAFE AND CLOTHING RETURNED TO THE PT. PT REFUSED TO SIGN DISCHARGE PAPERWORK.
== END 2020-04-21 12:15 | disposition home or self-care (01) | DRG 885 ==
LOC: GPS 15:50
PROVIDERS: ADMIT Psychiatry & Neurology Psychiatry; ATTEND Nurse Practitioner Acute Care
DX: F31.5 Bipolar disorder, current episode depressed, severe, with psychotic features (principal); E44.0 Moderate protein-calorie malnutrition; E87.6 Hypokalemia; T39.1X2D Poisoning by 4-Aminophenol derivatives, intentional self-harm, subsequent encounter; M50.30 Other cervical disc degeneration, unspecified cervical region; Z91.5 Personal history of self-harm; Z79.899 Other long term (current) drug therapy; R74.01 Elevation of levels of liver transaminase levels; E80.6 Other disorders of bilirubin metabolism; E66.9 Obesity, unspecified; Z68.26 Body mass index [BMI] 26.0-26.9, adult; Z91.81 History of falling; E88.09 Other disorders of plasma-protein metabolism, not elsewhere classified
CPT/HCPCS: 36415; 80048-TC; 80053-TC; 80061-TC; 81000-TC; 83735-TC; 84100-TC; 84443-TC; 85025-TC; 87081-TC